=== PATIENT | male | born 1955 | race Caucasian/White ===

== ENCOUNTER 2023-10-10 07:05 | Day surgery (SDC) | payer OTHER ==
[2023-10-10] MEDS: LACTATED RINGERS 1,000 ML IV ONE ×2 (07:10→09:20)
[2023-10-10] MEDS: CYCLOPENTOLATE 1% OPHTH DROPS 2 ML ONE (07:20)
[2023-10-10] MEDS: KETOROLAC 0.45% OPHTH DROPS ONE (07:20)
[2023-10-10] MEDS: PROPARACAINE 0.5% OPHTH DROPS 15 ML ONE (07:20)
[2023-10-10] MEDS: PHENYLEPHRINE 2.5% OPHTH 2 ML DROPS ONE (07:20)
--- NOTE | 2023-10-10 07:41 | ANESTHESIA ---
Pre-Anesthesia VS, & Labs - Diagnosis left eye nuclear cataract - Procedure left eye cataract extraction with IOL implant Vital Signs: Temp Pulse Resp BP Pulse Ox O2 Flow Rate 36.1 C L 66 18 153/83 H 100 10/10/23 07:18 10/10/23 07:18 10/10/23 07:18 10/10/23 07:18 10/10/23 07:18 Height: 6 ft 2 in Weight (kg): 88.45 kg Body Mass Index: 25.0 BMI Classification: Overweight - NPO >8 hours Home Medications and Allergies Home Medications: Ambulatory Orders No Known Home Medications 10/09/23 No Known Home Medications 10/09/23 Allergies/Adverse Reactions: Allergies Allergy/AdvReac Type Severity Reaction Status Date / Time Penicillins Allergy Rash Verified 10/09/23 13:35 Anes History & Medical History - Anesthetic History Anesthesia Complications: reports: No previous complications - Medical History Cardiovascular: reports: None Pulmonary: reports: None Gastrointestinal: reports: None Urinary: reports: None Neuro: reports: None Musculoskeletal: reports: None Endocrine/Autoimmune: reports: None Skin: reports: None Psychosocial: reports: Alcohol (1 glass wine/beer per day) History of Cancer?: No - Surgical History General: reports: Other (hernia repair) Exam General: Alert, Oriented x3, Cooperative, No acute distress Dental: WNL Mouth Openin Fingerbreadth Neck Mobility: Normal Mallampati classification: IV Thyromental Distance: 4-6 cm Mental/Cognitive Status: Alert/Oriented X3, Normal for patient Plan Anesthesia Type: MAC Consent for Procedure(s) Verified and Reviewed: Yes Code Status: Attempt Resuscitation ASA classification: 1-Healthy patient Is this case an emergency?: No
[2023-10-10] MEDS ORDERED: BSS/LIDOCAINE/EPINEPHRINE 1 ML VIAL ONE (08:43)
[2023-10-10] MEDS ORDERED: BRIMONIDINE 0.2% OPHTH DROPS 5 ML ONE (08:43)
[2023-10-10] MEDS ORDERED: TRIAMCIN/MOXIFLOX OPHTHALMIC 0.6 ML VIAL IO ONE (08:43)
[2023-10-10] MEDS ORDERED: TIMOLOL 0.5% OPHTH DROPS ONE (08:43)
[2023-10-10] MEDS ORDERED: EPINEPHrine 1 MG/ML AMP ONE (08:43)
[2023-10-10] MEDS ORDERED: MIDAZOLAM 2 MG/2 ML VIAL ONE (08:59)
[2023-10-10] MEDS: TIMOLOL 0.5% OPHTH DROPS OPTH ONE (09:03)
[2023-10-10] MEDS: EPINEPHrine 1 MG/ML AMP IR ONE (09:03)
[2023-10-10] MEDS: BRIMONIDINE 0.2% OPHTH DROPS 5 ML OPTH ONE (09:03)
[2023-10-10] MEDS: BSS/LIDOCAINE/EPINEPHRINE 1 ML SYRINGE IO ONE (09:04)
[2023-10-10] MEDS: PROPARACAINE 0.5% OPHTH DROPS 15 ML LEFTEYE ONE (09:04)
[2023-10-10] MEDS: TRIAMCIN/MOXIFLOX OPHTHALMIC 0.6 ML VIAL IO ONE (09:04)
[2023-10-10] MEDS: VANCOMYCIN OPHTH (TOPICAL) 10 MG/ML SYRINGE TOP ONE (09:05)
--- NOTE | 2023-10-10 09:27 | OPERATIVE REPORT ---
Operative Report - Other Other Information/Narrative: Date of Surgery: 10/10/23 Preop Dx: Visually significant cataract left eye. This was the first cataract surgery. Postop Dx: Same Procedure: Phacoemulsification with posterior chamber intraocular lens implant left eye Surgeon: Dr. 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 Best corrected visual acuity was 20/50 with glare to light perception vision in the left eye. Indications for surgery were: - Overall decrease in vision - Difficulty seeing words on a computer screen - Difficulty reading - Difficulty seeing words, closed captions, or game scores on TV - Difficulty seeing street signs - Difficulty tracking a golf ball The patient was consented at length concerning the risks and benefits of cataract surgery after which the patient expressed a desire to proceed with surgery. Operative Procedure: The patient was taken into OR#3 and placed under monitored anesthesia care. A surgical time-out was conducted confirming correct patient, correct procedure, and correct surgical site. The patient was given topical anesthesia and then prepped and draped in the usual sterile fashion. The eye was entered at the 6 and 3 oclock positions. Intracameral Shugarcaine was injected into the anterior chamber followed by a dispersive viscoelastic. A continuous-tear curvilinear capsulorhexis was performed. The nucleus was hydrodissected and phacoemulsified. The cortex was evacuated using automated infusion and aspiration. A cohesive viscoelastic was injected into the capsular bag and a 22.0 diopter intraocular lens was inserted into the bag. Infusion and aspiration were used to evacuate the viscoelastic materials from the eye. The wounds were hydrated and the eye inflated to physiologic pressure using balanced salt solution. Approximately 0.25ml of a mixture of triamcinolone and moxifloxacin was injected trans-sclerally into the vitreous in the inferotemporal quadrant using a 30 gauge cannula. An additional 0.25ml of a mixture of triamcinolone and moxifloxacin was injected subconjunctivally in the superior quadrant for infection and inflammation prophylaxis. Wound integrity was checked with Weck-Zonia sponges. The patient was taken from the operating room in good condition and given post-op instructions.
[2023-10-10 09:31] VITALS: O2SAT 97
[2023-10-10 09:41] VITALS: BP 127/78
--- NOTE | 2023-10-10 10:54 | ANESTHESIA POST OP EVALUATION ---
Anesthesia Post Eval - Post Anesthesia Eval Vitals: Last Vital Signs Temp 36.6 C 10/10/23 09:39 Pulse 66 10/10/23 09:39 Resp 16 10/10/23 09:39 BP 127/78 10/10/23 09:39 Pulse Ox 97 10/10/23 09:39 O2 Flow Rate CV Function Including HR & BP: Stable Pain Control: Satisfactory Nausea & Vomiting: Negative Mental Status: Baseline Respiratory Status: Airway Patent Hydration Status: Satisfactory Anesthesia Complications: None
== END 2023-10-10 07:06 | disposition home or self-care (01) ==
LOC: SDS 07:05
PROVIDERS: ATTEND Ophthalmology
DX: H25.12 Age-related nuclear cataract, left eye (principal)
CPT/HCPCS: 66984; A9270; J3490; J7120